=== PATIENT | female | born 1970 | race African-American/Black ===

== ENCOUNTER 2019-11-22 19:59 | Emergency (ER) | payer OTHER ==
[2019-11-22 20:11] VITALS: BP 177/96
[2019-11-22] MEDS ORDERED: KETOROLAC 30 MG/1 ML IM ONE (20:30)
[2019-11-22] MEDS ORDERED: KETOROLAC 30 MG/1 ML ONE (20:39)
== END 2019-11-22 21:51 | disposition home or self-care (01) ==
LOC: ED 21:47
DX: S20.211A Contusion of right front wall of thorax, initial encounter (principal); R05 Cough; F17.200 Nicotine dependence, unspecified, uncomplicated; W01.0XXA Fall on same level from slipping, tripping and stumbling without subsequent striking against object, initial encounter; Y93.89 Activity, other specified; Y92.89 Other specified places as the place of occurrence of the external cause; Y99.8 Other external cause status
CPT/HCPCS: 71101; 96372; 99283; J1885